=== PATIENT | female | born 1945 | race Asian ===

== ENCOUNTER 2017-07-27 12:37 | Emergency (ER) | payer MEDICARE, OTHER, MEDICAID ==
[~2017-07-27] VITALS: Ht 162.6 cm; Wt 45.4 kg
[~2017-07-27 12:37] MED LIST: AMLODIPINE BESYL5 MG ORAL; BENADRYL ALLERG25 M1 PO; CRANBERRY450 M4 PO; DOCUSATE SODIU100 MG ORAL; HYDROCHLOROTH12.5 M2 ORAL; LISINOPRIL10 MG ORAL; LODOSYN25 M1 PO; MULTIVITAMINS1 EAC2 ORAL; OMEPRAZOLE20 M2 ORAL; OYSTER SHELL C1 EA11 PO; POLYETHYLENE GL17 GM ORAL; SIMVASTATIN10 MG ORAL; SINEMET 25-1001 EAC1 ORAL; TRAMADOL HCL50 MG ORAL; VITAMIN C500 M1 ORAL
[2017-07-27 12:49] VITALS: BP 141/90
--- NOTE | 2017-07-27 13:02 | Emergency Room Report ---
History of Present Illness General Chief Complaint: Multiple Trauma/Fall Source: Medical Record Present Illness HPI Patient is 72-year-old female who presented after a fall last night approximately 10 PM. The patient reportedly is at her baseline mental status. Patient reported having a headache. Had unknown mechanism of injury. History is markedly limited by patient's mental status and long-term staff Allergies: Coded Allergies: No Known Allergies (Unverified , 07/09/15) Patient History Reviewed Nursing Documentation: PMH: Agreed, PSxH: Agreed Nursing Documentation-PMH Hx Hypertension: Yes Review of Systems All Other Systems: negative except mentioned in HPI Physical Exam Vital Signs Date Time Temp Pulse Resp B/P (MAP) Pulse Ox O2 Delivery O2 Flow Rate FiO2 07/27/17 12:29 97.2 72 20 132/82 97 Room Air Sp02 EP Interpretation: reviewed, normal General Appearance: normal inspection, well appearing, no apparent distress, alert, GCS 15 Head: atraumatic ENT: normal ENT inspection, hearing grossly normal, normal voice Neck: normal inspection, full range of motion, supple, no bony tend Respiratory: normal inspection, lungs clear, normal breath sounds, no respiratory distress, no retraction, no wheezing Cardiovascular #1: regular rate, rhythm, no edema Gastrointestinal: normal inspection, normal bowel sounds, non tender, soft, no guarding, no hernia Genitourinary: no CVA tenderness Musculoskeletal: normal inspection, back normal, normal range of motion Neurologic: normal inspection, alert, oriented x3, responsive, 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 History has markedly limited due to patient's mental status and the long-term staff being unaware of mechanism of injury. The patient underwent CT imaging of her head showed atrophic changes without evident fracture. There is no evident intracranial hemorrhage. A CT imaging cervical spine to degenerative changes without evident fracture or malalignment. The patient was sent back to her long-term. Patient was to return if she began persistent vomiting, altered metal status or new neurologic deficit. Last Vital Signs Date Time Temp Pulse Resp B/P (MAP) Pulse Ox O2 Delivery O2 Flow Rate FiO2 07/27/17 12:49 97.2 78 24 141/90 91 Room Air Status: improved Disposition: [facility] Condition: Stable Godfrey Camacho Jul 27, 2017 13:02
[2017-07-27] MEDS ORDERED: ARTIFICIAL TEA1 EAC2 OP (13:10)
[2017-07-27] MEDS ORDERED: ACETYLCYST100 MG/1 M INH (13:10)
[2017-07-27] MEDS ORDERED: DOCUSATE SODIU100 M2 ORAL (13:10)
[2017-07-27] MEDS ORDERED: HYDROCORTISONE-30 GM TOPIC (13:10)
[2017-07-27] MEDS ORDERED: ZOCOR10 MG ORAL (13:10)
[2017-07-27] MEDS ORDERED: DUONEB 0.5-3(2.53 ML HHN (13:10)
[2017-07-27] MEDS ORDERED: TRAMADOL HCL50 MG ORAL ×2 (13:10)
[2017-07-27] MEDS ORDERED: POLYETHYLENE GL17 GM ORAL (13:10)
[2017-07-27] MEDS ORDERED: OYSTER SHELL 51 EAC1 PO (13:10)
[2017-07-27] MEDS ORDERED: ACETAMINOPHEN120 MG RECTAL (13:10)
[2017-07-27] MEDS ORDERED: ALBUTEROL2.5 MG/3 M INH (13:10)
[2017-07-27] MEDS ORDERED: MICROZIDE12.5 M1 PO (13:10)
[2017-07-27] MEDS ORDERED: MUCINEX600 MG PO (13:10)
[2017-07-27] MEDS ORDERED: SINEMET 25-1001 EAC1 ORAL (13:10)
[2017-07-27] MEDS ORDERED: CRANBERRY450 M4 PO (13:10)
[2017-07-27] MEDS ORDERED: ZANTAC150 MG ORAL (13:10)
[2017-07-27] MEDS ORDERED: CLARITIN10 MG ORAL (13:10)
[2017-07-27] MEDS ORDERED: LODOSYN25 M1 PO (13:10)
[2017-07-27] MEDS ORDERED: ACETAMINOPHEN325 M1 ORAL ×2 (13:10)
[2017-07-27] MEDS ORDERED: SPIRIVA INHALE1 PUF1 INH (13:10)
--- NOTE | 2017-07-27 13:59 | Diagnostic Imaging Report ---
Indications: 72-year-old female status post fall last night, now with a headache Technique: Spiral acquisitions obtained through the brain. Angled axial and coronal 5 x 5 mm slices were reconstructed. Total dose length product 1439 mGycm. CTDI vol(s) mGy. Dose reduction achieved using automated exposure control Comparison: 07/09/2015 Findings: There is age-related enlargement of the ventricles and extra axial CSF spaces. There is periventricular deep white matter chronic ischemic change. No acute hemorrhage or edema. No mass effect or midline shift. 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 The visualized sinuses are clear. The visualized orbits are unremarkable except for evidence of prior right optic globe cataract surgery. There is a questionable lacunar infarct in the left midbrain, equivocally evident previously. When compared to prior exam, previously demonstrated ethmoid sinus disease is decreased. Previously demonstrated left supraorbital scalp contusion is no longer evident. No significant interim change otherwise Impression: Chronic and age-related changes Negative for acute intracranial bleed or mass effect Incidental findings as noted The CT scanner at [facility] is accredited by the [employer] and the scans are performed using protocols designed to limit radiation exposure to as low as reasonably achievable to attain images of sufficient resolution adequate for diagnostic evaluation.
--- NOTE | 2017-07-27 14:48 | Diagnostic Imaging Report ---
Indication: PAIN Technique: Spiral acquisitions obtained through the cervical spine. No IV contrast utilized. Multiplanar reconstructions were generated. Total dose length product 206 mGycm. CTDIvol(s) 11 mGy. Dose reduction achieved using automated exposure control Comparison: 07/09/2015 Findings: There is apparent rotary subluxation of C1 on C2, with C1 rotated to the left relative to C2. This results in some alignment abnormality of the C1-2 facet joints. However, degree of rotational anomaly appears similar to the prior exam. There is rightward tilt of the head which may be due to muscle spasm. This is a new finding. Is no evidence of acute fracture. There is suggestion of ankylosis of the posterior elements of C2 and C3. This was not evident on the prior study. There are degenerative changes of the atlantooccipital joints bilaterally. The alignment abnormality does not appear to result in any significant impingement on the spinal cord. The alignment of the other vertebral segments is normal. No evidence of acute fracture. No dislocations. No prevertebral soft tissue swelling. At C5-6, there is degenerative disc narrowing. No significant disc bulge or protrusion or spinal stenosis or neural frontal stenosis at this level. At the remaining levels, no significant disc bulge or protrusion, spinal stenosis, or neural foraminal narrowing. The included extraspinal soft tissues are unremarkable Impression: Alignment abnormality at the cervico-occipital junction and C1-2. 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 No definite dislocation. No evidence of fracture. No evidence of significant neural impingement. Mild disc degeneration at C5-[address] scanner at [facility] is accredited by the [employer] and the scans are performed using protocols designed to limit radiation exposure to as low as reasonably achievable to attain images of sufficient resolution adequate for diagnostic evaluation.
[2017-07-27 15:15] VITALS: BP 138/84
[2017-07-27] MEDS ORDERED: Acetaminophen 500mg (ES) tab ORAL ONE (15:30)
[2017-07-27 15:47] VITALS: BP 127/79
== END 2017-07-27 16:07 ==
LOC: EDBD 12:37 → EMR 13:15
DX: S09.90XA Unspecified injury of head, initial encounter (principal); W19.XXXA Unspecified fall, initial encounter; Y93.9 Activity, unspecified; Y99.9 Unspecified external cause status; R51 Headache; I10 Essential (primary) hypertension
CPT/HCPCS: 70450; 72125; 99284